=== PATIENT | female | born 2000 | race Two or more races ===

== ENCOUNTER → 2021-04-21 | Outpatient (CLI) | payer OTHER | END | disposition home or self-care (01) | LOC: PRENATAL 09:00 | PROVIDERS: ATTEND Obstetrics & Gynecology Maternal & Fetal Medicine | DX: O35.0XX1 Maternal care for (suspected) central nervous system malformation in fetus, fetus 1 (principal); O35.3XX1 Maternal care for (suspected) damage to fetus from viral disease in mother, fetus 1; O98.512 Other viral diseases complicating pregnancy, second trimester; Z36.89 Encounter for other specified antenatal screening; Z3A.24 24 weeks gestation of pregnancy ==

== ENCOUNTER 2021-05-07 15:14 | Outpatient (CLI) | payer OTHER ==
[2021-05-08] MEDS ORDERED: TERCONAZOLE45 GM VAG (12:22)
[2021-05-08] MEDS ORDERED: IRON325 MG PO (12:22)
[2021-05-08] MEDS ORDERED: DUI500 PO (12:22)
== END 2021-05-08 13:44 | disposition home or self-care (01) ==
LOC: OBS/DEL 15:14
PROVIDERS: ATTEND Obstetrics & Gynecology
DX: O98.812 Other maternal infectious and parasitic diseases complicating pregnancy, second trimester (principal); O99.012 Anemia complicating pregnancy, second trimester; D64.89 Other specified anemias; B37.89 Other sites of candidiasis; O23.32 Infections of other parts of urinary tract in pregnancy, second trimester; Z3A.26 26 weeks gestation of pregnancy

== ENCOUNTER 2021-08-01 14:23 | Inpatient (IN) | payer OTHER ==
[~2021-08-01] VITALS: Ht 160 cm; Wt 3.2 kg
[~2021-08-01 14:23] MED LIST: DUI500 PO; IRON325 MG PO; TERCONAZOLE45 GM VAG
[2021-08-01] MEDS ORDERED: AMOX-CLAV 500-1 EACH PO (16:23)
[2021-08-04] MEDS ORDERED: IRON325 MG PO (13:29)
[2021-08-04] MEDS ORDERED: OXYC1TAB9 PO (13:30)
[2021-08-04] MEDS ORDERED: IBUPROFEN800 MG PO (13:30)
[2021-08-04] MEDS ORDERED: DOCUSATE SODIU100 MG PO (13:30)
== END 2021-08-04 13:34 | disposition home or self-care (01) | DRG 787 ==
LOC: OB/GYN 14:23 → LDR 14:23 → O/R 21:49 → OB/GYN 22:42
PROVIDERS: ADMIT Obstetrics & Gynecology; ATTEND Obstetrics & Gynecology
PROC: 4A1HXFZ Monitoring of Products of Conception, Cardiac Rhythm, External Approach (ICD-10-PCS; 2021-08-01)
PROC: 3E0P7VZ Introduction of Hormone into Female Reproductive, Via Natural or Artificial Opening (ICD-10-PCS; 2021-08-01)
PROC: 10D00Z1 Extraction of Products of Conception, Low, Open Approach (ICD-10-PCS; principal; 2021-08-01 19:00)
DX: O76 Abnormality in fetal heart rate and rhythm complicating labor and delivery (principal); O41.03X0 Oligohydramnios, third trimester, not applicable or unspecified; O99.02 Anemia complicating childbirth; D64.9 Anemia, unspecified; O99.824 Streptococcus B carrier state complicating childbirth; Z37.0 Single live birth; Z3A.39 39 weeks gestation of pregnancy